=== PATIENT | male | born 1975 | race Caucasian/White ===

== ENCOUNTER 2018-10-01 14:49 | Emergency (ER) | payer MEDICAID ==
--- NOTE | 2018-10-01 15:27 | ED Physician Chart ---
ED Chief Complaint/HPI - Patient Information Date Seen:: 10/01/18 Time Seen:: 15:00 Chief Complaint:: Right Foot Redness History of Present Illness:: onset x 3 days of right foot erythema, RGT and right 2nd toe pain, redness, mild swelling, and erythema; pt denies trauma, LOC, ALOC, AMS, H/As, visual or gait changes, S/T, neck pain, weakness, dizziness, paresthesias, vertigo, C/P, SOB, cough, Abd. Pain, A/N/V/D/C, fever, chills, bleeding, or urinary s/s; pt's last tetanus shot: < 5 years; UTD; Allergies:: Allergies Allergy/AdvReac Type Severity Reaction Status Date / Time No Known Allergies Allergy Verified 10/01/18 15:11 Vitals:: Vital Signs - 8 hr 10/01/18 15:05 Temp 96.3 F HR 114 RR 16 BP 142/86 O2 Sat % 96 Historian:: Patient Review:: Nurse's Note Reviewed, Old Chart Reviewed ED Review of Systems - Review of Systems General/Constitutional: No fever, No chills, No weight loss, No weakness, No diaphoresis, No edema, No loss of appetite Skin: No skin lesions, No rash, No bruising Head: No headache, No light-headedness Eyes: No loss of vision, No pain, No diplopia ENT: No earache, No nasal drainage, No sore throat, No tinnitus Neck: No neck pain, No swelling, No thyromegaly, No stiffness, No mass noted Cardio Vascular: No chest pain, No palpitations, No PND, No orthopnea, No edema Pulmonary: No SOB, No cough, No sputum, No wheezing GI: No nausea, No vomiting, No diarrhea, No pain, No melena, No hematochezia, No constipation, No hematemesis G/U: No dysuria, No frequency, No hematuria, No nacturia Musculoskeletal: No bone or joint pain, No back pain, No muscle pain Endocrine: No polyuria, No polydipsia Psychiatric: No prior psych history, No depression, No anxiety, No suicidal ideation, No homicidal ideation, No auditory hallucination, No visual hallucination Hematopoietic: No bruising, No lymphadenopathy Allergic/Immuno: No urticaria, No angioedema Neurological: No syncope, No focal symptoms, No weakness, No paresthesia, No headache, No seizure, No dizziness, No confusion, No vertigo ED Past Medical History - Past Medical History Obtainable: Yes Past Medical History: HTN Family History: HTN Social History: Non Smoker, No Alcohol, No Drug Use, Single Surgical History: None Psychiatricy History: None Medication: Reviewed Family Medical History - Family Member Mother History Unknown: Yes ED Physical Exam - Physical Examination General/Constitutional: Awake, Well-developed, well-nourished, Alert, No distress, GCS 15, Non-toxic appearing, Ambulatory Head: Atraumatic Eyes: Lids, conjuctiva normal, PERRL, EOMI Skin: Nl inspection, No rash, No skin lesions, No ecchymosis, Well hydrated, No lymphadenopathy ENMT: External ears, nose nl, TM canals nl, Nasal exam nl, Lips, teeth, gums nl , Oropharynx nl, Tonsils nl Neck: Nontender, Full ROM w/o pain, No JVD, No nuchal rigidity, No bruit, No mass, No stridor Other Neck comments:: supple; no meningeal signs; no cervical tenderness Respiratory: Nl effort/Exclusion, Clear to Auscultation, No Wheeze/Rhonchi/Rales Cardio Vascular: RRR, No murmur, gallop, rubs, NL S1 S2, Carotid/Femoral/Distal pulses equal bilaterally GI: No tenderness/rebounding/guarding, No organomegaly, No hernia, Normal BS's, Nondistended, No mass/bruits, No McBurney tenderness, Rectum exam nl Other GI comments:: no pulsatile masses : No CVA tenderness Extremities: No tenderness or effusion, Full ROM, normal strength in all extremities, No edema, Normal digits & nails Other Extremities comments:: + RGT and Right 2nd Toe localized Cellulitis; no wounds; no septic joints; no joint tenderness; full active ROMs of all joints; no loss of ROMs; no ligament instability; no ligament laxity; no FBs; DTRs: 2+ bilaterally; Gait: WNL; good motor, tendon, and sensory functions; good NV functions; no calf tenderness; - Zhang's sign; no Feet/Ankle/Leg/LE tenderness Neuro/Psych: Alert/oriented, DTR's symmetric, Normal sensory exam, Normal motor strength, Judgement/insight normal, Mood normal, Normal gait, No focal deficits Other Neuro/Psych comments:: no focal signs Misc: Normal back, No paraspinal tenderness ED Labs/Radiology/EKG Results - Radiology Results Comments:: X-Rays: deferred by pt; U/S: deferred by pt ED Septic Shock - . Is Septic Shock (SBP<90, OR Lactate>4 mmol\L) present?: No - <6hrs of presentation: Vital Signs: Vital Signs - 8 hr 10/01/18 15:05 Temp 96.3 F HR 114 RR 16 BP 142/86 O2 Sat % 96 ED Reassessment (Disposition) - Reassessment Reassessment:: pt is asymptomatic upon discharge Reassessment Condition:: Improved - Diagnosis Diagnosis:: Right Foot/Toe Erythema/Pain/Swelling; Localized Cellulitis; Hypertension; Right Foot/Toes Cellulitis; - Aftercare/Follow up Instructions Aftercare/Follow-Up Instructions:: Counseled pt regarding lab results/diagnosis & need follow up, Refer to Discharge Instructions, Counseled pt & family regarding lab results/diagnosis & need follow up Medication Prescribed:: Rx: Keflex 500mg po qid x 10 days; Neosporin Ointment bid x 14 days; Orthopedic Shoe to Right Foot; Warm Compresses/Heating Pads to affected areas; Tylenol #3: one tablet po tid prn pain (#10); Elevate Right Foot; take all medications as prescribed - Patient Disposition Discharge/Transfer:: Home Condition at Disposition:: Stable, Improved (Have Blood Pressure re-checked in one day; RTER prn if existing s/s reoccur and/or get worse and/or any other new s/s occur; ACIs given for all above Dx; Refer to Orthopedist/Vascular Surgeon/ Tree Doctor TOD; F/U with PMD in one day or prn; RTER prn if concerned)
== END 2018-10-01 15:45 | disposition home or self-care (01) ==
LOC: ER 14:49
DX: L03.031 Cellulitis of right toe (principal); I10 Essential (primary) hypertension
CPT/HCPCS: Z7502

== ENCOUNTER 2018-11-28 15:56 | Emergency (ER) | payer MEDICAID | END 2018-11-28 17:56 | disposition left against medical advice (07) | LOC: ER 15:56 | DX: M25.519 Pain in unspecified shoulder (principal); Z53.21 Procedure and treatment not carried out due to patient leaving prior to being seen by health care provider ==